=== PATIENT | male | born 1975 ===

== ENCOUNTER 2016-06-23 15:03 | Emergency (ER) | payer OTHER ==
[2016-06-23 15:04] VITALS: BMI 33.0
[2016-06-23 15:10] VITALS: BP 120/60; PULSE 74; RESP 20; O2SAT 98
--- NOTE | 2016-06-23 16:00 | ED PDOC ---
HPI: CCC, URI, Sore Throat Time Seen by Provider: 06/23/16 15:12 Chief Complaint (Nursing): ENT Problem Chief Complaint (Provider): Sore Throat History Per: Patient, Family () History/Exam Limitations: no limitations ([employer] F[employer]ating Still Operator # [id number] assisted with communication.) Have you had recent travel within the past 21 days to any of the following countries: [place], [place], [place] or [place]?: No Onset/Duration Of Symptoms: Days (x3 years), Intermittent Episodes (most recent as of x2-3 days) Current Symptoms Are (Timing): Still Present Sick Contacts (Context): None Associated Symptoms: denies: Fever, Cough, Other (no chest pain, rash) Severity: Moderate Additional Complaint(s): Parker Vincent is a 40 year old male, with a past medical history that includes HTN and hypercholesterolemia, who presents to the ED on 06/23/16 for the evaluation of a sore throat that he has experienced x2-3 days. [employer]ating Still Operator #[id number] assisted with communication. Patient states that he has experienced similar sore throats intermittently over the past 3 years and that, though he has already been evaluated by an ENT via scope, no abnormalities were found during that examination. Denies fever, chest pain, cough, rash, known sick contacts or recent travel. PMD: none Past Medical History Reviewed: Historical Data, Nursing Documentation, Vital Signs Vital Signs: Last Vital Signs Temp 97.5 F L 06/23/16 15:08 Pulse 74 06/23/16 15:08 Resp 20 06/23/16 15:08 BP 120/60 06/23/16 15:08 Pulse Ox 98 06/23/16 16:08 - Medical History PMH: HTN, Hypercholesterolemia, Kidney Stones, Chronic Kidney Disease (kidney stones) - Surgical History Surgical History: Endoscopy Denies: Carotid Endarterectomy - Family History Family History: States: Unknown Family Hx - Living Arrangements Living Arrangements: With Family - Social History Current smoker - smoking cessation education provided: Yes (light (<10 cigarettes/day)) Alcohol: None Drugs: Denies - Immunization History Hx Tetanus Toxoid Vaccination: No Hx Influenza Vaccination: No Hx Pneumococcal Vaccination: No - Home Medications Home Medications: Ambulatory Orders Medication Instructions Recorded Aspirin [Aspirin Chewable] 81 mg PO DAILY #30 tab 05/24/16 Atorvastatin [Lipitor] 20 mg PO DAILY #30 tab 05/24/16 Fluticasone Propionate [Flonase] 2 spr ESTER DAILY #1 bottle 05/24/16 Lisinopril [Zestril] 5 mg PO DAILY #30 tab 05/24/16 metFORMIN [glucOPHAGE] 500 mg PO BRK #30 tab 05/24/16 Mag&Al/Simet/Diphen/Lido [First 5 ml MM BID PRN #1 kit 06/23/16 Magic Mouthwash] - Allergies Allergies/Adverse Reactions: Allergies Allergy/AdvReac Type Severity Reaction Status Date / Time No Known Allergies Allergy Verified 06/23/16 15:59 Review of Systems Constitutional: Negative for: Fever ENT: Positive for: Throat Pain Cardiovascular: Negative for: Chest Pain Respiratory: Negative for: Cough Skin: Negative for: Rash Physical Exam - Reviewed Nursing Documentation Reviewed: Yes Vital Signs Reviewed: Yes - Physical Exam Appears: Positive for: Non-toxic, No Acute Distress Head Exam: Positive for: ATRAUMATIC, NORMOCEPHALIC Skin: Positive for: Normal Color, Warm, Dry ENT: Positive for: Normal ENT Inspection, Pharynx Is (clear; no trismus or evidence of drooling, able to swallow without issue). Negative for: Pharyngeal Erythema, Tonsillar Exudate, Tonsillar Swelling Cardiovascular/Chest: Positive for: Regular Rate, Rhythm. Negative for: Murmur Respiratory: Positive for: Normal Breath Sounds. Negative for: Respiratory Distress Neurologic/Psych: Positive for: Alert, Oriented - ECG O2 Sat by Pulse Oximetry: 98 (RA) Pulse Ox Interpretation: Normal - Progress ED Course And Treament: Rapid strep screen: negative Medical Decision Making Medical Decision Makin:12 Initial Impression: sore throat; will r/o Strep Initial Plan: * Rapid Strep Scribe Attestation: Documented by Mariam Dahl, acting as a scribe for Get Norris PA-C. Provider Scribe Attestation: All medical record entries made by the Scribe were at my direction and personally dictated by me. I have reviewed the chart and agree that the record accurately reflects my personal performance of the history, physical exam, medical decision making, and the department course for this patient. I have also personally directed, reviewed, and agree with the discharge instructions and disposition. Disposition - Clinical Impression Clinical Impression: Sore throat - Patient ED Disposition Is Patient to be Admitted: No - Disposition Referrals: Juan A Aguilar MD [Staff Provider] - [facility] [Outside] Disposition: Routine/Home Disposition Time: 16:14 Condition: STABLE Additional Instructions: Follow up with Dr. Aguilar, ENT, for further evaluation. Prescriptions: Mag&Al/Simet/Diphen/Lido [First Magic Mouthwash] 5 ml MM BID PRN #1 kit PRN Reason: Sore Throat
[2016-06-23 16:23] VITALS: TEMP 97.9
== END 2016-06-23 16:22 | disposition home or self-care (01) ==
LOC: H.ER 15:03
DX: J02.9 Acute pharyngitis, unspecified (principal); I12.9 Hypertensive chronic kidney disease with stage 1 through stage 4 chronic kidney disease, or unspecified chronic kidney disease; E78.00 Pure hypercholesterolemia, unspecified; Z79.84 Long term (current) use of oral hypoglycemic drugs; E11.9 Type 2 diabetes mellitus without complications